=== PATIENT | female | born 1955 | race Hispanic/Latino ===

== ENCOUNTER 2023-12-05 08:23 | Inpatient (IN) | payer OTHER, SELFPAY ==
[2023-12-05 09:17] LABS: #Monocytes 0.5 thou/uL (0.11-0.59); #Neutrophils 13.7 thou/uL (1.40-6.50); %Basophils 0.1 % (0.0-1.0); %Eosinophils 0.1 % (0.0-10.0); %Lymphocytes 8.1 % (21.0-51.0); %Monocytes 3.4 % (0.0-10.0); %Neutrophils 87.6 % (42.0-75.0); Hematocrit 19.8 % (36.0-47.0); Mean Corpuscular HGB CONC 25.3 g/dL (32.0-36.0); Mean Corpuscular Hemoglobin 16.4 pg (27.0-31.0); Mean Corpuscular Volume 64.9 fl (78.0-98.0); Mean Platelet Volume 9.2 fL (7.4-10.4); Platelet Count 767 10x3/uL (130-400); RBC Distribution Width 21.7 % (11.5-14.5); Red Blood Cell (RBC) Count 3.05 mill/uL (4.20-5.40); White Blood Cell (WBC) Count 15.6 10x3/uL (4.8-10.8)
[2023-12-05 09:26] LABS: Critical Call w/ Read Back NUR.JF4 @ 0926
[2023-12-05 09:51] LABS: CellaVision Operator ID LAB.KW3; Hypochromia SLIGHT = 6-15 cells HPF (0-5); Microcytosis SLIGHT = 6-15 cells HPF (0-5); Platelet Adequacy Comment Platelets Increased; Polychromasia MODERATE = 3-4 cells HPF (0-2); Schistocytes SLIGHT = 2-5 cells HPF (0-1); Target Cells SLIGHT = 2-5 cells HPF (0-1)
[2023-12-05 10:00] LABS: ALT (SGPT) 9 U/L (8-55); AST (SGOT) 17 U/L (5-34); Albumin 3.4 g/dL (3.4-4.8); Alkaline Phosphatase 67 U/L (40-110); Anion Gap 14 mmol/L (10-20); BUN (Urea Nitrogen) 13 mg/dL (9.8-20.1); Bilirubin, Total 0.4 mg/dL (0.2-1.2); Calc. Creatinine Clearance 0 mL/min (70-130); Calcium 8.8 mg/dL (7.8-10.44); Carbon Dioxide 20 mmol/L (23-31); Chloride 103 mmol/L (98-107); Estimated GFR 80; Globulin 3.6 g/dL (2.4-3.5); Glucose 109 mg/dL (80-115); Lipase 13 U/L (8-78); Potassium 3.4 mmol/L (3.5-5.1); Sodium 134 mmol/L (136-145)
[2023-12-05] MEDS ORDERED: Ondansetron PF 4 MG/2 ML Vial IVP PRN (11:39)
[2023-12-05] MEDS ORDERED: Calcium Carbonate 500 MG ChewTAB PO PRN (11:39)
[2023-12-05] MEDS ORDERED: Acetaminophen 325 MG TAB PO PRN (11:39)
[2023-12-05] MEDS ORDERED: Senokot S 8.6-50 MG TAB PO PRN (11:39)
[2023-12-05] MEDS ORDERED: Sodium Chloride 0.9% 100 ML ONE (11:48)
[2023-12-05] MEDS ORDERED: Piperacillin/Tazobactam 4.5 GM VIAL ONE (11:48)
[2023-12-05] MEDS ORDERED: Sodium Chloride 0.9% 1,000 ML IV SCH (11:59)
[2023-12-05] MEDS: Piperacillin/Tazobactam 3.375 GM in Sodium Chloride 0.9% 100 ML IVPB SCH (15:37)
[2023-12-05] MEDS ORDERED: Iopamidol-370 76% 500 ML MDV (1 ML CHARGE) ONE (16:12)
[2023-12-05 17:38] VITALS: BMI 21.7
[2023-12-05] MEDS ORDERED: Piperacillin/Tazobactam 3.375 GM in Sodium Chloride 0.9% 100 ML IVPB SCH (18:00)
[2023-12-05] MEDS: Potassium Chloride 30 MEQ in Sodium Chloride 0.9% 1,000 ML IV SCH (18:31)
[2023-12-05] MEDS: GoLYTELY 4,000 ml Bottle PO SCH (18:32)
[2023-12-05 19:02] LABS: Hematocrit 27.9 % (36.0-47.0)
[2023-12-05] MEDS: Potassium Chloride 20 MEQ TAB PO SCH (20:39)
[2023-12-05] MEDS: Famotidine/PF 20 mg/2ml Vial SLOW IVP SCH (20:39)
[2023-12-06 05:38] LABS: #Monocytes 0.7 thou/uL (0.11-0.59); #Neutrophils 10.1 thou/uL (1.40-6.50); %Basophils 0.2 % (0.0-1.0); %Eosinophils 0.2 % (0.0-10.0); %Lymphocytes 14.7 % (21.0-51.0); %Monocytes 5.2 % (0.0-10.0); %Neutrophils 79.3 % (42.0-75.0); Hematocrit 26.4 % (36.0-47.0); Hemoglobin 7.6 g/dL (12.0-16.0); Mean Corpuscular HGB CONC 28.8 g/dL (32.0-36.0); Mean Corpuscular Hemoglobin 21.5 pg (27.0-31.0); Mean Platelet Volume 8.9 fL (7.4-10.4); Platelet Count 674 10x3/uL (130-400); RBC Distribution Width 28.2 % (11.5-14.5); Red Blood Cell (RBC) Count 3.54 mill/uL (4.20-5.40); White Blood Cell (WBC) Count 12.7 10x3/uL (4.8-10.8)
[2023-12-06 05:42] LABS: Mean Corpuscular Volume 74.6 fl (78.0-98.0)
[2023-12-06] MEDS ORDERED: GoLYTELY 4,000 ml Bottle PO SCH (06:45)
[2023-12-06 07:04] LABS: ALT (SGPT) 10 U/L (8-55); AST (SGOT) 17 U/L (5-34); Albumin 3.3 g/dL (3.4-4.8); Alkaline Phosphatase 64 U/L (40-110); Anion Gap 15 mmol/L (10-20); BUN (Urea Nitrogen) 13 mg/dL (9.8-20.1); Bilirubin, Total 0.9 mg/dL (0.2-1.2); Calc. Creatinine Clearance 70 mL/min (70-130); Calcium 8.6 mg/dL (7.8-10.44); Carbon Dioxide 21 mmol/L (23-31); Chloride 107 mmol/L (98-107); Estimated GFR 96; Globulin 3.4 g/dL (2.4-3.5); Glucose 102 mg/dL (80-115); Magnesium 2.3 mg/dL (1.6-2.6); Potassium 3.7 mmol/L (3.5-5.1); Protein, Total 6.7 g/dL (5.8-8.1); Sodium 139 mmol/L (136-145)
[2023-12-06 09:38] LABS: Iron 10 ug/dL (50-170); Iron Binding Capacity, Total 299 mcg/dL (265-497)
[2023-12-06 09:39] LABS: Iron 10 ug/dL (50-170); Iron Binding Capacity, Total 298 mcg/dL (265-497)
[2023-12-06] MEDS ORDERED: PROPOFOL 20 ML ONE ×2 (14:24→14:58)
[2023-12-06 17:29] LABS: Hematocrit 25.5 % (36.0-47.0); Hemoglobin 7.3 g/dL (12.0-16.0)
[2023-12-06] MEDS: Pantoprazole 40 MG VIAL IVP SCH (19:08)
[2023-12-06] MEDS: Vancomycin (BATCH) 1.25 GM in Premix 1 BAG IVPB SCH (19:49)
[2023-12-07 04:25] LABS: Hematocrit 22.7 % (36.0-47.0); Hemoglobin 6.4 g/dL (12.0-16.0); Mean Corpuscular HGB CONC 28.2 g/dL (32.0-36.0); Mean Corpuscular Hemoglobin 21.3 pg (27.0-31.0); Mean Corpuscular Volume 75.4 fl (78.0-98.0); Mean Platelet Volume 9.3 fL (7.4-10.4); RBC Distribution Width 29.2 % (11.5-14.5); Red Blood Cell (RBC) Count 3.01 mill/uL (4.20-5.40); White Blood Cell (WBC) Count 10.1 10x3/uL (4.8-10.8)
[2023-12-07 05:03] LABS: Platelet Count 559 10x3/uL (130-400)
[2023-12-07 05:19] LABS: Anion Gap 11 mmol/L (10-20); BUN (Urea Nitrogen) 9 mg/dL (9.8-20.1); Calc. Creatinine Clearance 86 mL/min (70-130); Calcium 7.9 mg/dL (7.8-10.44); Carbon Dioxide 22 mmol/L (23-31); Chloride 109 mmol/L (98-107); Estimated GFR 101; Glucose 81 mg/dL (80-115); Potassium 3.5 mmol/L (3.5-5.1); Sodium 138 mmol/L (136-145)
[2023-12-07] MEDS: Vancomycin HCl 750 MG in Sodium Chloride 0.9% 250 ML 250 ML IVPB SCH (05:29)
[2023-12-07] MEDS: Iron, Sodium Ferric Gluconate 125 MG in Sodium Chloride 0.9% 100 ML IVPB SCH (13:06)
[2023-12-07 14:22] LABS: Hematocrit 29.1 % (36.0-47.0); Hemoglobin 8.4 g/dL (12.0-16.0)
[2023-12-08 05:49] LABS: #Eosinphils 0.1 thou/uL (0.0-0.7); #Monocytes 0.4 thou/uL (0.11-0.59); #Neutrophils 5.9 thou/uL (1.40-6.50); %Basophils 0.1 % (0.0-1.0); %Eosinophils 1.4 % (0.0-10.0); %Lymphocytes 17.1 % (21.0-51.0); %Monocytes 5.1 % (0.0-10.0); %Neutrophils 75.9 % (42.0-75.0); Hematocrit 28.4 % (36.0-47.0); Hemoglobin 8.2 g/dL (12.0-16.0); Mean Corpuscular HGB CONC 28.9 g/dL (32.0-36.0); Mean Corpuscular Volume 79.8 fl (78.0-98.0); Mean Platelet Volume 8.8 fL (7.4-10.4); Platelet Count 547 10x3/uL (130-400); RBC Distribution Width 29.1 % (11.5-14.5); Red Blood Cell (RBC) Count 3.56 mill/uL (4.20-5.40); White Blood Cell (WBC) Count 7.8 10x3/uL (4.8-10.8)
[2023-12-08 06:17] LABS: Anion Gap 9 mmol/L (10-20); BUN (Urea Nitrogen) 5 mg/dL (9.8-20.1); Calc. Creatinine Clearance 85 mL/min (70-130); Calcium 8.3 mg/dL (7.8-10.44); Carbon Dioxide 21 mmol/L (23-31); Chloride 112 mmol/L (98-107); Estimated GFR 100; Glucose 88 mg/dL (80-115); Potassium 4.1 mmol/L (3.5-5.1); Sodium 138 mmol/L (136-145)
[2023-12-08 06:18] LABS: Vancomycin, Trough 7.3 ug/mL
[2023-12-08 06:36] LABS: Anisocytosis SLIGHT = 6-15 cells HPF (0-5); CellaVision Operator ID lab.abc; Hypochromia SLIGHT = 6-15 cells HPF (0-5); Microcytosis SLIGHT = 6-15 cells HPF (0-5); Platelet Adequacy Comment Platelets Increased; Polychromasia MODERATE = 3-4 cells HPF (0-2)
[2023-12-08] MEDS: Vancomycin HCl 750 MG in Sodium Chloride 0.9% 250 ML 250 ML IVPB SCH (06:38)
[2023-12-08] MEDS ORDERED: Vancomycin HCl 750 MG in Sodium Chloride 0.9% 250 ML 250 ML IVPB SCH (14:00)
[2023-12-08] MEDS ORDERED: Midazolam HCl 2 mg/2 ml Vial ONE (14:11)
[2023-12-08] MEDS ORDERED: fentaNYL 50 mcg/mL 1 mL Vial ONE (14:11)
[2023-12-08] MEDS ORDERED: Bupivacaine 0.25% HCL 30 ML VIAL ONE (14:11)
[2023-12-08] MEDS ORDERED: SUGAMMADEX SODIUM 200 MG/2 ML VIAL ONE (16:09)
[2023-12-08] MEDS ORDERED: Lidocaine 1% PF 5 ML VIAL ONE (16:09)
[2023-12-08] MEDS ORDERED: Rocuronium Bromide 10 MG/ML (10ML VIAL) ONE (16:09)
[2023-12-08] MEDS ORDERED: Dexamethasone 4 mg/ml Vial ONE (16:09)
[2023-12-08] MEDS ORDERED: Ondansetron PF 4 MG/2 ML Vial ONE (16:09)
[2023-12-08] MEDS ORDERED: fentaNYL PF 100 MCG/2 ML SYRINGE ONE ×2 (16:09→17:46)
[2023-12-08] MEDS ORDERED: PROPOFOL 20 ML ONE (16:09)
[2023-12-08] MEDS ORDERED: CEFAZOLIN 2 GM VIAL ONE (16:16)
[2023-12-08] MEDS ORDERED: Sodium Chloride 0.9% 100 ML ONE (16:16)
[2023-12-08] MEDS ORDERED: Phenylephrine 40 MG/NS 250 ML 250 ML ONE (16:24)
[2023-12-08] MEDS ORDERED: Vasopressin 20 UNITS/ML VIAL ONE (16:24)
[2023-12-08] MEDS ORDERED: Phenylephrine 10 MG/ML VIAL ONE (16:27)
[2023-12-08] MEDS ORDERED: Albumin 5% 250 ML ONE (16:27)
[2023-12-08] MEDS: FLU VACC QS2023(65UP)/MF59C/PF 60 MCG/0.5 ML SYRINGE IM ONE (17:39)
[2023-12-08] MEDS ORDERED: Non-Formulary Medication 1 EACH PO PRN (21:02)
[2023-12-08] MEDS ORDERED: Ondansetron HCl/PF 4 MG/2 ML Vial IVP PRN (21:15)
[2023-12-08] MEDS ORDERED: Promethazine HCl 25 MG/ML VIAL IM PRN (21:15)
[2023-12-09] MEDS: Morphine 4 MG/ML VIAL SLOW IVP PRN (04:18)
[2023-12-09 04:55] LABS: #Monocytes 0.4 thou/uL (0.11-0.59); #Neutrophils 11.6 thou/uL (1.40-6.50); %Basophils 0.1 % (0.0-1.0); %Lymphocytes 9.8 % (21.0-51.0); %Monocytes 3.1 % (0.0-10.0); %Neutrophils 86.6 % (42.0-75.0); Hematocrit 34.4 % (36.0-47.0); Hemoglobin 10.2 g/dL (12.0-16.0); Mean Corpuscular HGB CONC 29.7 g/dL (32.0-36.0); Mean Corpuscular Hemoglobin 24.3 pg (27.0-31.0); Mean Corpuscular Volume 82.1 fl (78.0-98.0); Mean Platelet Volume 8.7 fL (7.4-10.4); Platelet Count 574 10x3/uL (130-400); RBC Distribution Width 29.2 % (11.5-14.5); Red Blood Cell (RBC) Count 4.19 mill/uL (4.20-5.40); White Blood Cell (WBC) Count 13.4 10x3/uL (4.8-10.8)
[2023-12-09 05:21] LABS: Anion Gap 12 mmol/L (10-20); BUN (Urea Nitrogen) 5 mg/dL (9.8-20.1); Calc. Creatinine Clearance 80 mL/min (70-130); Calcium 8.1 mg/dL (7.8-10.44); Carbon Dioxide 18 mmol/L (23-31); Chloride 113 mmol/L (98-107); Estimated GFR 99; Glucose 91 mg/dL (80-115); Sodium 139 mmol/L (136-145)
[2023-12-09] MEDS ORDERED: Promethazine HCl 25 MG/ML VIAL IM PRN (07:55)
[2023-12-09] MEDS ORDERED: diphenhydrAMINE 25 MG CAP PO PRN (07:55)
[2023-12-09] MEDS ORDERED: Ondansetron PF 4 MG/2 ML Vial IVP PRN (07:55)
[2023-12-09] MEDS ORDERED: diphenhydrAMINE 50 MG/ML VIAL IVP PRN (07:55)
[2023-12-09] MEDS ORDERED: Naloxone HCl 0.4 mg/ml Vial IV PRN (07:55)
[2023-12-09] MEDS ORDERED: diphenhydrAMINE 50 MG/ML VIAL IM PRN (07:55)
[2023-12-09] MEDS ORDERED: Communication Order-Pharmacy FS SCH (08:00)
[2023-12-09] MEDS: Ketorolac Tromethamine 30 MG (1 mL) VIAL IVP SCH ×2 (08:26→12:06)
[2023-12-09] MEDS: Enoxaparin 40 MG (0.4 mL) SYRINGE SC SCH (08:27)
[2023-12-09] MEDS: HYDROmorphone/PF 10 MG in Sodium Chloride 0.9% 99 ML IV PRN (09:39)
[2023-12-09] MEDS: Lactated Ringer's 1,000 ML IV SCH (12:05)
[2023-12-09] MEDS: Acetaminophen 500 MG TAB PO SCH (12:07)
[2023-12-09] MEDS ORDERED: Acetaminophen 325 MG TAB PO SCH (13:00)
[2023-12-09] MEDS ORDERED: Enoxaparin 30 MG (0.3 mL) SYRINGE SC SCH (21:00)
[2023-12-10 04:46] LABS: #Eosinphils 0.1 thou/uL (0.0-0.7); #Monocytes 0.5 thou/uL (0.11-0.59); #Neutrophils 9.5 thou/uL (1.40-6.50); %Basophils 0.1 % (0.0-1.0); %Eosinophils 0.6 % (0.0-10.0); %Lymphocytes 12.6 % (21.0-51.0); %Monocytes 3.9 % (0.0-10.0); %Neutrophils 82.4 % (42.0-75.0); Hematocrit 32.4 % (36.0-47.0); Hemoglobin 9.4 g/dL (12.0-16.0); Mean Corpuscular Hemoglobin 24.2 pg (27.0-31.0); Mean Corpuscular Volume 83.3 fl (78.0-98.0); Mean Platelet Volume 8.9 fL (7.4-10.4); Platelet Count 515 10x3/uL (130-400); RBC Distribution Width 30.2 % (11.5-14.5); Red Blood Cell (RBC) Count 3.89 mill/uL (4.20-5.40); White Blood Cell (WBC) Count 11.5 10x3/uL (4.8-10.8)
[2023-12-10 05:20] LABS: Anion Gap 12 mmol/L (10-20); BUN (Urea Nitrogen) 12 mg/dL (9.8-20.1); Calc. Creatinine Clearance 83 mL/min (70-130); Carbon Dioxide 20 mmol/L (23-31); Chloride 111 mmol/L (98-107); Estimated GFR 100; Glucose 76 mg/dL (80-115); Potassium 3.9 mmol/L (3.5-5.1); Sodium 139 mmol/L (136-145)
[2023-12-10] MEDS: Lactated Ringer's 1,000 ML IV SCH (16:49)
[2023-12-11 06:50] LABS: #Eosinphils 0.2 thou/uL (0.0-0.7); #Monocytes 0.4 thou/uL (0.11-0.59); #Neutrophils 6.5 thou/uL (1.40-6.50); %Basophils 0.2 % (0.0-1.0); %Eosinophils 2.5 % (0.0-10.0); %Lymphocytes 14.4 % (21.0-51.0); %Monocytes 4.3 % (0.0-10.0); %Neutrophils 78.1 % (42.0-75.0); Hematocrit 30.2 % (36.0-47.0); Hemoglobin 8.8 g/dL (12.0-16.0); Mean Corpuscular HGB CONC 29.1 g/dL (32.0-36.0); Mean Corpuscular Volume 82.5 fl (78.0-98.0); Platelet Count 487 10x3/uL (130-400); RBC Distribution Width 30.3 % (11.5-14.5); Red Blood Cell (RBC) Count 3.66 mill/uL (4.20-5.40); White Blood Cell (WBC) Count 8.3 10x3/uL (4.8-10.8)
[2023-12-11 07:02] LABS: Anion Gap 10 mmol/L (10-20); BUN (Urea Nitrogen) 14 mg/dL (9.8-20.1); Calc. Creatinine Clearance 82 mL/min (70-130); Calcium 7.7 mg/dL (7.8-10.44); Carbon Dioxide 21 mmol/L (23-31); Chloride 110 mmol/L (98-107); Estimated GFR 100; Glucose 81 mg/dL (80-115); Potassium 3.6 mmol/L (3.5-5.1); Sodium 137 mmol/L (136-145)
[2023-12-11 07:22] LABS: Anisocytosis SLIGHT = 6-15 cells HPF (0-5); CellaVision Operator ID lab.dlt; Hypochromia SLIGHT = 6-15 cells HPF (0-5); Ovalocytes MODERATE= 6-15 cells HPF (0-1); Platelet Adequacy Comment Platelets Increased; Poikilocytosis MODERATE=16-30 cells HPF (0-5); Polychromasia SLIGHT = 2-3 cells HPF (0-2); Tear Drops SLIGHT = 2-5 cells HPF (0-1)
[2023-12-11] MEDS ORDERED: traMADol HCl 50 MG TAB PO PRN (12:28)
[2023-12-12] MEDS: Ibuprofen 600 MG TAB PO PRN (04:38)
[2023-12-12 07:10] VITALS: BP 119/81; TEMP 97.7
== END 2023-12-12 15:25 | disposition home or self-care (01) | DRG 330 ==
LOC: ERS 08:23 → SUATTDRO 08:23 → T4-B 11:28
PROVIDERS: ADMIT Internal Medicine; ATTEND Internal Medicine
PROC: 0DB98ZX Excision of Duodenum, Via Natural or Artificial Opening Endoscopic, Diagnostic (ICD-10-PCS; 2023-12-06)
PROC: 0DB58ZX Excision of Esophagus, Via Natural or Artificial Opening Endoscopic, Diagnostic (ICD-10-PCS; 2023-12-06)
PROC: 0DBF8ZX Excision of Right Large Intestine, Via Natural or Artificial Opening Endoscopic, Diagnostic (ICD-10-PCS; 2023-12-06)
PROC: 0D1B0ZL Bypass Ileum to Transverse Colon, Open Approach (ICD-10-PCS; principal; 2023-12-08)
DX: C18.2 Malignant neoplasm of ascending colon (principal); E87.1 Hypo-osmolality and hyponatremia; K22.10 Ulcer of esophagus without bleeding; K63.2 Fistula of intestine; L02.211 Cutaneous abscess of abdominal wall; M60.08 Infective myositis, other site; E87.6 Hypokalemia; Z66 Do not resuscitate; K21.9 Gastro-esophageal reflux disease without esophagitis; K64.4 Residual hemorrhoidal skin tags; K64.8 Other hemorrhoids; D50.0 Iron deficiency anemia secondary to blood loss (chronic); K26.9 Duodenal ulcer, unspecified as acute or chronic, without hemorrhage or perforation; Z90.49 Acquired absence of other specified parts of digestive tract
CPT/HCPCS: 36415; 36416; 36430; 71046; 71260; 74177; 80048; 80053; 80202; 82378; 82728; 83540; 83550; 83690; 83735; 85025; 85027; 86850; 86900; 86901; 87040; 87149; 88305; 88312; 88313; 93005; A4314; C1713; C9113; J0665; J1100; J1170; J1650; J1885; J2250; J2270; J2371; J2405; J2543; J2704; J2916; J3010; J3370; J3480; J3490; J7050; J7120; P9016; P9045; S0028

== ENCOUNTER 2024-03-16 09:47 | Outpatient (CLI) | payer MEDICARE ==
[2024-03-16] MEDS ORDERED: Iopamidol 370 76% 100 ML VIAL ONE (12:08)
== END 2024-03-16 09:48 | disposition home or self-care (01) ==
LOC: CT 09:47
PROVIDERS: ATTEND Physician Assistant Medical
DX: C18.2 Malignant neoplasm of ascending colon (principal); K21.00 Gastro-esophageal reflux disease with esophagitis, without bleeding; K26.9 Duodenal ulcer, unspecified as acute or chronic, without hemorrhage or perforation; S22.039A Unspecified fracture of third thoracic vertebra, initial encounter for closed fracture; S22.049A Unspecified fracture of fourth thoracic vertebra, initial encounter for closed fracture; S22.059A Unspecified fracture of T5-T6 vertebra, initial encounter for closed fracture; S22.069A Unspecified fracture of T7-T8 vertebra, initial encounter for closed fracture; K22.89 Other specified disease of esophagus; K43.9 Ventral hernia without obstruction or gangrene; K76.9 Liver disease, unspecified; R59.0 Localized enlarged lymph nodes
CPT/HCPCS: 71260; 74177; 82565; Q9967

== ENCOUNTER 2024-07-09 09:03 | Outpatient (CLI) | payer MEDICARE ==
[2024-07-09] MEDS ORDERED: Iopamidol 370 76% 100 ML VIAL ONE (15:00)
== END 2024-07-09 09:04 | disposition home or self-care (01) ==
LOC: CT 09:03
PROVIDERS: ATTEND Internal Medicine Hematology & Oncology
DX: C18.9 Malignant neoplasm of colon, unspecified (principal); R19.09 Other intra-abdominal and pelvic swelling, mass and lump; I51.7 Cardiomegaly; S22.079A Unspecified fracture of T9-T10 vertebra, initial encounter for closed fracture; S22.089A Unspecified fracture of T11-T12 vertebra, initial encounter for closed fracture; S32.029A Unspecified fracture of second lumbar vertebra, initial encounter for closed fracture; S32.059A Unspecified fracture of fifth lumbar vertebra, initial encounter for closed fracture; S32.10XA Unspecified fracture of sacrum, initial encounter for closed fracture
CPT/HCPCS: 71260; 74177; Q9967

== ENCOUNTER 2024-07-26 11:02 | Outpatient (CLI) | payer MEDICARE | END 2024-07-26 11:03 | disposition home or self-care (01) | LOC: BICMAMMO 11:02 | PROVIDERS: ATTEND Internal Medicine Hematology & Oncology | DX: M85.89 Other specified disorders of bone density and structure, multiple sites (principal) | CPT/HCPCS: 77080 ==

== ENCOUNTER 2024-08-24 04:17 | Inpatient (IN) | payer MEDICARE ==
[2024-08-24] MEDS ORDERED: NOREPINEPHRINE 8 MG/250 ML-D5W 250 ML ONE (04:21)
[2024-08-24] MEDS ORDERED: Sodium Chloride 0.9% 100 ML ONE (04:52)
[2024-08-24] MEDS ORDERED: Vancomycin 1 GM/200 ML (FROZEN) BAG ONE (04:52)
[2024-08-24] MEDS ORDERED: Cefepime 2 GM VIAL ONE (04:52)
[2024-08-24 05:07] LABS: #Basophils Less than 0.03 10x3/uL (0.0-0.2); #Eosinophils Less than 0.03 10x3/uL (0.0-0.7); %Basophils 0.2 % (0.0-1.0); %Lymphocytes 12.2 % (21.0-51.0); %Monocytes 3.1 % (0.0-10.0); %Neutrophils 83.7 % (42.0-75.0); Hematocrit 35.2 % (36.0-47.0); Hemoglobin 11.3 g/dL (12.0-16.0); Mean Corpuscular HGB CONC 32.1 g/dL (32.0-36.0); Mean Corpuscular Hemoglobin 27.9 pg (27.0-31.0); Mean Corpuscular Volume 86.9 fL (78.0-98.0); Platelet Count 127 10x3/uL (130-400); RBC Distribution Width 22.9 % (11.5-14.5); Red Blood Cell (RBC) Count 4.05 mill/uL (4.20-5.40)
[2024-08-24] MEDS ORDERED: Adenosine 6 mg (2 mL) VIAL ONE (05:07)
[2024-08-24 05:15] LABS: Base Excess -10.4 mEq/L (-2.0 to +3.0); Chloride (VBG) 106 mmol/L (98-106); Hematocrit-VBG 34 % (36.0-47.0); Hemoglobin (Hb) 11.7 g/dL (11.7-16.1); Potassium (VBG) 3.22 mmol/L (3.70-5.30); Sodium 130 mmol/L (133-146); pH (venous) 7.342 (7.32-7.43)
[2024-08-24 05:16] LABS: Actual Bicarbonate (HCO3v) 13.8 mEq/L (22-28); Calcium, Ionized (venous) 0.78 mmol/L (1.16-1.32)
[2024-08-24] MEDS ORDERED: Amiodarone 150 MG/3 ML VIAL ONE (05:17)
[2024-08-24 05:34] LABS: ALT (SGPT) 19 U/L (8-55); AST (SGOT) 21 U/L (5-34); Albumin 0.9 g/dL (3.4-4.8); Alkaline Phosphatase 193 U/L (40-110); Anion Gap 12 mmol/L (10-20); BUN (Urea Nitrogen) 20 mg/dL (9.8-20.1); Bilirubin, Total 0.4 mg/dL (0.2-1.2); Calc. Creatinine Clearance 0 mL/min (70-130); Calcium 4.8 mg/dL (7.8-10.44); Carbon Dioxide 12 mmol/L (23-31); Chloride 110 mmol/L (98-107); Estimated GFR 95; Globulin 2.5 g/dL (2.4-3.5); Glucose 109 mg/dL (80-115); Magnesium 1.5 mg/dL (1.6-2.6); Potassium 3.2 mmol/L (3.5-5.1); Protein, Total 3.4 g/dL (5.8-8.1); Sodium 131 mmol/L (136-145)
[2024-08-24] MEDS ORDERED: CALCIUM GLUC 1 GM/NS 50 ML IV Bag ONE (06:07)
[2024-08-24] MEDS ORDERED: Heparin 25,000 units/D5W 500 ML ONE (07:10)
[2024-08-24 07:47] LABS: INR-International Normal Ratio 1.2; Prothrombin Time 15.6 sec (12.0-14.7)
[2024-08-24 07:48] LABS: PTT 36.2 sec (22.9-36.1)
[2024-08-24] MEDS ORDERED: Amiodarone 450 MG, Admixture Fee 1 EACH in Dextrose 5% in Water 250 ML IVPB SCH (08:00)
[2024-08-24 08:02] LABS: Lactic Acid 2.56 mmol/L (0.5-2.2)
[2024-08-24] MEDS ORDERED: Electrolyte Replacement Protocol 1 EACH IVPB SCH (08:37)
[2024-08-24] MEDS ORDERED: Acetaminophen 325 MG (10.15 ML) UDCUP PO PRN (08:37)
[2024-08-24] MEDS ORDERED: Acetaminophen 325 MG TAB PO PRN (08:40)
[2024-08-24] MEDS ORDERED: traMADol HCl 50 MG TAB PO PRN (08:40)
[2024-08-24] MEDS ORDERED: Ondansetron PF 4 MG/2 ML Vial IVP PRN (08:40)
[2024-08-24] MEDS ORDERED: Sodium Bicarbonate 150 MEQ in Sodium Chloride 0.9% 1,000 ML IV SCH (09:00)
[2024-08-24] MEDS ORDERED: Heparin 10,000 UNITS/ 10 ML VIAL SLOW IVP SCH (09:00)
[2024-08-24] MEDS ORDERED: Heparin 25,000 units/D5W 500 ML IVPB SCH (09:00)
[2024-08-24 09:20] LABS: Hematocrit 40.8 % (36.0-47.0); Hemoglobin 13.3 g/dL (12.0-16.0); Platelet Count 144 10x3/uL (130-400)
[2024-08-24 09:43] LABS: Troponin I 0.379 ng/mL (< 0.028)
[2024-08-24] MEDS: Sodium Bicarbonate 150 MEQ in Dextrose 5% in Water 1,000 ML IV SCH (10:29)
[2024-08-24] MEDS: NOREPINEPHRINE 8 MG/250 ML-D5W 250 ML IVPB PRN (10:31)
[2024-08-24 11:03] LABS: Lactic Acid 6.36 mmol/L (0.5-2.2)
[2024-08-24 11:50] VITALS: BMI 20.4
[2024-08-24] MEDS: Vasopressin In 0.9 % NaCl 40 UNIT in Premix 1 BAG IV SCH (11:53)
[2024-08-24] MEDS: Famotidine/PF 20 mg/2ml Vial SLOW IVP SCH (12:02)
[2024-08-24] MEDS: Albumin 25% 25 GM (100 mL) BOT IVPB SCH (12:50)
[2024-08-24 13:00] LABS: Troponin I 0.426 ng/mL (< 0.028)
[2024-08-24] MEDS ORDERED: Vancomycin HCl 750 MG in Sodium Chloride 0.9% 250 ML 250 ML IVPB SCH (13:00)
[2024-08-24] MEDS ORDERED: Hydrocortisone Sod Succ/PF 100 mg/2 ml Vial IVP SCH ×3 (13:30→14:00)
[2024-08-24] MEDS ORDERED: Lactated Ringer's 1,000 ML IV SCH (14:00)
[2024-08-24] MEDS ORDERED: Sodium Bicarb 50 mEq/50 ML VIAL IVP SCH (14:00)
[2024-08-24] MEDS: Sodium Bicarb 50 MEQ/50 ML Abboject 8.4% SYRINGE ONE (14:05)
[2024-08-24] MEDS ORDERED: Atropine Sulfate 1% Ophth Soln 5 ml Bottle SL PRN (14:20)
[2024-08-24] MEDS: Morphine 4 MG/ML VIAL ONE (14:25)
[2024-08-24] MEDS ORDERED: Morphine 2 MG/ML VIAL SLOW IVP SCH (14:30)
[2024-08-24 14:36] LABS: Anion Gap 21 mmol/L (10-20); BUN (Urea Nitrogen) 20 mg/dL (9.8-20.1); Calc. Creatinine Clearance 57 mL/min (70-130); Calcium 5.4 mg/dL (7.8-10.44); Carbon Dioxide 13 mmol/L (23-31); Chloride 101 mmol/L (98-107); Estimated GFR 85; Glucose 287 mg/dL (80-115); Sodium 131 mmol/L (136-145)
[2024-08-24 14:38] LABS: PTT 219.2 sec (22.9-36.1)
[2024-08-24] MEDS: Magnesium 2 GM/50 ML(in water) 2 GM in Premix 1 BAG IVPB SCH (14:41)
[2024-08-24] MEDS: Potassium Chloride 20 MEQ TAB PO SCH (14:41)
[2024-08-24 14:44] VITALS: BMI 20.4
[2024-08-24] MEDS: Lorazepam 2 MG/ML VIAL SLOW IVP PRN (14:57)
[2024-08-24] MEDS: Morphine 2 MG/ML VIAL SLOW IVP PRN (14:57)
[2024-08-24] MEDS: Vancomycin 1.5 GM in Sodium Chloride 0.9% 250 ML 300 ML IVPB SCH (15:25)
[2024-08-24] MEDS ORDERED: Cefepime 2 GM in Sodium Chloride 0.9% 100 ML IVPB SCH (16:00)
[2024-08-24] MEDS: Digoxin 0.5 MG/2 ML AMP SLOW IVP SCH (16:09)
[2024-08-25] MEDS: Glycopyrrolate 0.4 MG/ 2 ML VIAL SLOW IVP PRN (11:53)
[2024-08-25] MEDS: Scopolamine 1 mg/72 hour Patch TD SCH (14:03)
[2024-08-26 12:23] VITALS: BP 78/41; TEMP 94.4
== END 2024-08-26 10:10 | disposition expired | DRG 871 ==
LOC: ERS 04:17 → CCU 10:03 → T4-B 17:14
PROVIDERS: ADMIT Internal Medicine; ATTEND Hospitalist
PROC: 02HV33Z Insertion of Infusion Device into Superior Vena Cava, Percutaneous Approach (ICD-10-PCS; principal; 2024-08-24)
PROC: B548ZZA Ultrasonography of Superior Vena Cava, Guidance (ICD-10-PCS; 2024-08-24)
PROC: 4A143B0 Monitoring of Venous Pressure, Central, Percutaneous Approach (ICD-10-PCS; 2024-08-24)
PROC: 03HY32Z Insertion of Monitoring Device into Upper Artery, Percutaneous Approach (ICD-10-PCS; 2024-08-24)
PROC: 4A133B1 Monitoring of Arterial Pressure, Peripheral, Percutaneous Approach (ICD-10-PCS; 2024-08-24)
PROC: 4A133J1 Monitoring of Arterial Pulse, Peripheral, Percutaneous Approach (ICD-10-PCS; 2024-08-24)
PROC: 3E033XZ Introduction of Vasopressor into Peripheral Vein, Percutaneous Approach (ICD-10-PCS; 2024-08-24)
PROC: 3E043XZ Introduction of Vasopressor into Central Vein, Percutaneous Approach (ICD-10-PCS; 2024-08-24)
PROC: 3E03329 Introduction of Other Anti-infective into Peripheral Vein, Percutaneous Approach (ICD-10-PCS; 2024-08-24)
PROC: 3E04329 Introduction of Other Anti-infective into Central Vein, Percutaneous Approach (ICD-10-PCS; 2024-08-24)
PROC: 30233J1 Transfusion of Nonautologous Serum Albumin into Peripheral Vein, Percutaneous Approach (ICD-10-PCS; 2024-08-24)
PROC: 30243J1 Transfusion of Nonautologous Serum Albumin into Central Vein, Percutaneous Approach (ICD-10-PCS; 2024-08-24)
DX: A41.4 Sepsis due to anaerobes (principal); G93.41 Metabolic encephalopathy; I26.99 Other pulmonary embolism without acute cor pulmonale; R65.21 Severe sepsis with septic shock; J96.01 Acute respiratory failure with hypoxia; L02.211 Cutaneous abscess of abdominal wall; J90 Pleural effusion, not elsewhere classified; E87.20 Acidosis, unspecified; E87.1 Hypo-osmolality and hyponatremia; C18.9 Malignant neoplasm of colon, unspecified; I82.411 Acute embolism and thrombosis of right femoral vein; A41.51 Sepsis due to Escherichia coli [E. coli]; B37.7 Candidal sepsis; Z66 Do not resuscitate; Z51.5 Encounter for palliative care; R79.89 Other specified abnormal findings of blood chemistry; I48.91 Unspecified atrial fibrillation; E87.6 Hypokalemia; E83.42 Hypomagnesemia; E83.51 Hypocalcemia; Z90.49 Acquired absence of other specified parts of digestive tract; Z98.890 Other specified postprocedural states; Z98.51 Tubal ligation status
CPT/HCPCS: 36415; 36556; 71045; 71260; 71275; 74177; 80053; 82805; 83605; 83735; 84484; 85025; 85610; 85730; 87040; 87070; 87077; 87186; 87205; 93005; 94760; 96365; 96375; 96376; 99292; J0153; J0282; J0613; J0692; J1644; J2060; J2272; J3370-JW; J7070; P9047